=== PATIENT | male | born 1985 ===

== ENCOUNTER 2017-10-18 16:06 | Emergency (ER) | payer MEDICAID ==
[2017-10-18 16:28] VITALS: O2SAT 98
--- NOTE | 2017-10-18 16:49 | ED PDOC ---
HPI: Male Pain Time Seen by Provider: 10/18/17 16:48 Chief Complaint (Nursing): Male Genitourinary Chief Complaint (Provider): dysuria History Per: Patient Additional Complaint(s): 32-year-old male presents to emergency Department with dysuria that started earlier today associated with mild suprapubic pain. Patient denies fever or chills. Patient states when he urinated earlier he felt pain in both testicles. He denies any penile discharge. No fever or chills, no flank pain, vomiting or nausea. Patient denies history of similar symptoms and denies concern for any STDs. PMD: Dr. Sofía Quarles Past Medical History Reviewed: Historical Data, Nursing Documentation, Vital Signs Vital Signs: Last Vital Signs Temp 98.6 F 10/18/17 16:25 Pulse 71 10/18/17 16:25 Resp 19 10/18/17 16:25 BP 129/74 10/18/17 16:25 Pulse Ox 98 10/18/17 16:25 - Medical History PMH: No Chronic Diseases - Surgical History Surgical History: Appendectomy Other surgeries: left foot surgery - Family History Family History: States: No Known Family Hx - Living Arrangements Living Arrangements: With Family - Social History Current smoker - smoking cessation education provided: No Alcohol: None Drugs: Denies - Home Medications Home Medications: Ambulatory Orders Medication Instructions Recorded Oxycodone HCl/Acetaminophen 1 tab PO Q6 PRN #20 tab 08/25/15 [Percocet 325 mg-5 mg] levoFLOXacin [Levaquin] 500 mg PO DAILY #7 tab 08/25/15 Ciprofloxacin HCl [Cipro] 500 mg PO BID #14 tablet 10/18/17 Ibuprofen [Motrin] 600 mg PO Q6 PRN #15 tab 10/18/17 - Allergies Allergies/Adverse Reactions: Allergies Allergy/AdvReac Type Severity Reaction Status Date / Time apple Allergy RASH Verified 10/18/17 16:29 pear Allergy RASH Verified 10/18/17 16:30 nuts Allergy SWELLING Uncoded 10/18/17 16:29 Review of Systems ROS Statement: Except As Marked, All Systems Reviewed And Found Negative Constitutional: Negative for: Fever, Chills Gastrointestinal: Positive for: Abdominal Pain (suprapubic). Negative for: Nausea, Vomiting Genitourinary Male: Positive for: Dysuria, Scrotal Pain. Negative for: Frequency, Incontinence, Hematuria, Penile Discharge, Rash, Penile Pain Physical Exam - Reviewed Nursing Documentation Reviewed: Yes Vital Signs Reviewed: Yes - Physical Exam Appears: Positive for: Well, Non-toxic, No Acute Distress Skin: Positive for: Normal Color. Negative for: Rash Eye Exam: Positive for: Normal appearance Cardiovascular/Chest: Positive for: Regular Rate, Rhythm Respiratory: Positive for: Normal Breath Sounds. Negative for: Wheezing, Respiratory Distress Gastrointestinal/Abdominal: Positive for: Soft. Negative for: Tenderness, Distended, Guarding, Rebound Back: Negative for: L CVA Tenderness, R CVA Tenderness Extremity: Positive for: Normal ROM Neurologic/Psych: Positive for: Alert, Oriented - Laboratory Results Result Diagrams: 10/18/17 17:01 10/18/17 17:01 Urine dip results: Negative for: Leukocyte Esterase, Blood, Nitrate, Ketones, Glucose, Bilirubin, Protein - ECG O2 Sat by Pulse Oximetry: 98 Pulse Ox Interpretation: Normal - Other Rad Testes US X-Ray: Read By Radiologist X-Ray Interpretation: no acute finding Medical Decision Making Medical Decision Makin-year-old male with dysuria and testicular pain. Plan: Urine dip UA Urine culture CBC CMP IVF US Testes IV toradol US is normal. Patient given prescription for Cipro for dysuria. He was referred to urologist [employer] consultant for follow up. Disposition - Clinical Impression Clinical Impression: Dysuria - Patient ED Disposition Is Patient to be Admitted: No Counseled Patient/Family Regarding: Studies Performed, Diagnosis, Need For Followup, Rx Given - Disposition Referrals: Chilango Delgado MD [Medical Doctor] - Disposition: Routine/Home Disposition Time: 19:58 Condition: STABLE Additional Instructions: Take prescription meds as directed. Follow-up with urologist for any persistent symptoms. Prescriptions: Ciprofloxacin HCl [Cipro] 500 mg PO BID #14 tablet Ibuprofen [Motrin] 600 mg PO Q6 PRN #15 tab PRN Reason: Pain, Moderate (4-7) Instructions: Dysuria, Adult (DC) Forms: [facility] ([place]) Results - Lab Results Lab Results: 10/18/17 10/18/17 10/18/17 17:01 17:01 16:55 WBC 10.5 RBC 4.85 Hgb 15.9 Hct 45.0 MCV 92.8 MCH 32.8 H MCHC 35.3 RDW 13.3 Plt Count 200 MPV 8.5 Neut % (Auto) 60.9 Lymph % (Auto) 32.2 Mower % (Auto) 4.7 Eos % (Auto) 1.4 Baso % (Auto) 0.8 Neut # (Auto) 6.4 Lymph # (Auto) 3.4 Mower # (Auto) 0.5 Eos # (Auto) 0.1 Baso # (Auto) 0.1 Sodium 143 Potassium 3.8 Chloride 105 Carbon Dioxide 29 Anion Gap 13 BUN 15 Creatinine 0.8 Est GFR ( Amer) > 60 Est GFR (Non-Af Amer) > 60 Random Glucose 103 Calcium 9.3 Total Bilirubin 0.4 AST 30 ALT 36 Alkaline Phosphatase 92 Total Protein 7.8 Albumin 4.5 Globulin 3.2 Albumin/Globulin Ratio 1.4 Urine Color Yellow Urine Clarity Cloudy Urine pH 6.0 Ur Specific [place] 1.024 Urine Protein Negative Urine Glucose (UA) Neg Urine Ketones Negative Urine Blood Negative Urine Nitrate Negative Urine Bilirubin Negative Urine Urobilinogen 0.2-1.0 Ur Leukocyte Esterase Neg Urine RBC (Auto) 2 Urine Microscopic WBC 3 Ur Squamous Epith Cells < 1 Uric Acid Crystals Rare Amorphous Sediment Rare H Urine Bacteria Rare
[2017-10-18] MEDS: Sodium Chloride 0.9% 1,000 ML IV STA (16:56)
[2017-10-18 17:11] LABS: BASO # 0.1 K/uL (0.0-0.2); BASO % 0.8 % (0.0-2.0); EOS # 0.1 K/uL (0.0-0.7); EOS % 1.4 % (0.0-4.0); HEMOGLOBIN 15.9 g/dL (12.0-18.0); LYMPH # 3.4 K/uL (1.0-4.3); LYMPH % 32.2 % (20.0-40.0); MEAN CELL VOLUME 92.8 fl (80.0-94.0); MEAN CORPUSCULAR HEMOGLOBIN 32.8 pg (27.0-31.0); MEAN CORPUSCULAR HGB CONC 35.3 g/dL (33.0-37.0); MEAN PLATELET VOLUME 8.5 fl (7.2-11.7); MONO # 0.5 K/uL (0.0-0.8); MONO % 4.7 % (0.0-10.0); NEUT # 6.4 K/uL (1.8-7.0); NEUT % 60.9 % (50.0-75.0); NRBC % 0.1 % (0.0-0.0); RBC 4.85 Mil/uL (4.40-5.90); RED CELL DISTRIBUTION WIDTH 13.3 % (11.5-14.5); WHITE BLOOD COUNT 10.5 K/uL (4.8-10.8)
[2017-10-18 17:19] LABS: SQUAMOUS EPITHIAL < 1 /hpf (0-5); URINE AMORPHOUS SEDIMENT RARE /ul (<OCC); URINE BACTERIA RARE (<OCC); URINE BILIRUBIN NEGATIVE (NEGATIVE); URINE BLOOD NEGATIVE (NEGATIVE); URINE CLARITY CLOUDY (Clear); URINE COLOR YELLOW (YELLOW); URINE GLUCOSE (UA) NEG (Normal); URINE LEUKOCYTE ESTERASE NEG Leu/uL (Negative); URINE PROTEIN NEGATIVE (NEGATIVE); URINE URIC ACID CRYSTALS RARE /hpf (<OCC); URINE UROBILINOGEN 0.2-1.0 mg/dL (0.2-1.0)
[2017-10-18 17:22] LABS: ALB/GLOB RATIO 1.4 (1.0-2.1); ALBUMIN 4.5 g/dL (3.5-5.0); ALT/SGPT 36 U/L (21-72); AST/SGOT 30 U/L (17-59); BLOOD UREA NITROGEN 15 mg/dl (9-20); CALCIUM 9.3 mg/dL (8.4-10.2); GFR NON-AFRICAN AMERICAN > 60
[2017-10-18 21:02] VITALS: BP 115/65; PULSE 62; RESP 16; TEMP 98.2
--- NOTE | 2017-10-21 10:04 | US ---
Date of service: 10/18/2017 HISTORY: dysuria, b/l testicular pain TECHNIQUE: Realtime sonography through the scrotum with color and doppler flow. COMPARISON: None Available. FINDINGS: RIGHT TESTICLE: Measures 4.4 x 2.0 x 2.3 cm. No evidence of solid intratesticular mass. There is a incidental 2 millimeter hypoechoic cyst in the upper pole of the right testicle as well as an adjacent small intratesticular calcification. RIGHT EPIDIDYMIS: Epididymal head measures 1 by 1 cm. Grossly unremarkable appearance with normal flow. LEFT TESTICLE: Measures 4.5 x 2.2 x 2.8 cm. Normal echotexture and flow. LEFT EPIDIDYMIS: Epididymal head measures 0.9 cm. Grossly unremarkable appearance with normal flow. HYDROCELE: Small amount of hydrocele. VARICOCELE: None. OTHER FINDINGS: None. IMPRESSION: No ultrasound evidence of torsion. No evidence of intratesticular mass. No ultrasound evidence of epididymitis. This agrees with preliminary report.
== END 2017-10-18 20:39 | disposition home or self-care (01) ==
LOC: H.ER 16:06
DX: N50.811 Right testicular pain (principal); R30.0 Dysuria
CPT/HCPCS: 80053; 81003; 85025; 87086; 87491; 87591; 93975; 99283; J1885; J7030